=== PATIENT | female | born 1995 | race Caucasian/White ===

== ENCOUNTER 2018-08-19 14:37 | Emergency (ER) | payer BC ==
[~2018-08-19] VITALS: Ht 167.6 cm; Wt 68.0 kg
[~2018-08-19 14:37] MED LIST: CODE1TAB37 PO; IRON1TAB4 PO; MACROBID 100 M100 MG PO; [UNRECOGNIZED DRUG - OTHER] IM
[2018-08-20] MEDS ORDERED: DICLOFENAC POTA50 MG PO (04:14)
== END 2018-08-20 04:16 | disposition home or self-care (01) ==
LOC: ER 14:37
DX: R10.31 Right lower quadrant pain (principal); R10.2 Pelvic and perineal pain